=== PATIENT | male | born 1955 | race Caucasian/White ===

== ENCOUNTER → 2020-08-05 | Day surgery (SDC) | payer OTHER ==
[~2020-08-05] MED LIST: ASPIRIN EC81 MG PO; LIPITOR40 MG PO; LOVAZA1 GM PO; OSTEOBLOX CF C1 EACH PO
[2020-08-05 08:18] LABS: HCT 48.2 % (42.0-52.0); HGB 15.9 g/dl (13.2-18.0); MCH 28.8 pg (25.0-31.0); MCV 87.2 fL (78.0-100.0); MPV 11.5 fL (6.0-9.5); RBC 5.53 M/uL (4.70-6.00); RDW 14.2 % (11.5-14.0); WBC 5.4 K/uL (4.0-10.5)
[2020-08-05 08:48] LABS: ALBUMIN 3.9 g/dL (3.4-5.0); BILIRUBIN - TOTAL 1.2 mg/dL (0.2-1.0); BUN/CREAT RATIO (CALC) 24.4 RATIO; CREATININE 0.82 mg/dL (0.67-1.17); GLOBULIN (CALCULATION) 3.8 g/dL; POTASSIUM 3.6 mmol/L (3.5-5.1); TOTAL PROTEIN 7.7 g/dL (6.4-8.2)
== END | disposition home or self-care (01) ==
LOC: FAS 07:28
PROVIDERS: Surgery
DX: K57.30 Diverticulosis of large intestine without perforation or abscess without bleeding (principal); E78.00 Pure hypercholesterolemia, unspecified; Z87.891 Personal history of nicotine dependence; Z88.0 Allergy status to penicillin; Z79.82 Long term (current) use of aspirin; Z79.899 Other long term (current) drug therapy
CPT/HCPCS: 36415; 80053; J2704; J7120